=== PATIENT | female | born 1960 | race Hispanic/Latino ===

== ENCOUNTER 2018-08-22 19:30 | Emergency (ER) | payer MEDICARE, OTHER ==
[2018-08-22 19:31] VITALS: BMI 26.6
[2018-08-22 20:04] VITALS: BP 136/77; PULSE 84; RESP 18; TEMP 99.6; O2SAT 97
--- NOTE | 2018-08-22 20:14 | ED PDOC ---
Arrival/HPI - General Historian: Patient - History of Present Illness Narrative History of Present Illness (Text): 08/22/18 20:35 Patient is a 58 year old female with a past medical history of hypertension presenting to the emergency room after cutting her left thumb with a knife. Patient states she cut her thumb last night, greater than 20 hours ago. She washed the hand with hydrogen peroxide and has used neosporin to keep clean. Patient did not come yesterday because it was too late. She decided to come tonight just to get the wound checked. She has no other complaints at this time. Time/Duration: Other (20 hours) Symptom Onset: Sudden Symptom Course: Improving Quality: Other (none) <Jt Dudley - Last Filed: 08/22/18 21:33> <José Bradley - Last Filed: 08/23/18 02:42> - General Chief Complaint: Abnormal Skin Integrity Time Seen by Provider: 08/22/18 19:42 Past Medical History - Provider Review Nursing Documentation Reviewed: Yes - Infectious Disease Hx of Infectious Diseases: None - Reproductive Menopause: Yes - Cardiac Hx Cardiac Disorders: Yes Hx Hypertension: Yes - Pulmonary Hx Respiratory Disorders: No - Neurological Hx Neurological Disorder: No - HEENT Hx HEENT Disorder: No - Renal Hx Renal Disorder: No - Endocrine/Metabolic Hx Endocrine Disorders: No - Hematological/Oncological Hx Blood Disorders: No - Integumentary Hx Dermatological Disorder: No - Musculoskeletal/Rheumatological Hx Musculoskeletal Disorders: No - Gastrointestinal Hx Gastrointestinal Disorders: No - Genitourinary/Gynecological Hx Genitourinary Disorders: No - Psychiatric Hx Psychophysiologic Disorder: No Hx Substance Use: No - Surgical History Hx Cholecystectomy: Yes - Anesthesia Hx Anesthesia: No <Jt Dduley - Last Filed: 08/22/18 21:33> Family/Social History - Physician Review Nursing Documentation Reviewed: Yes Family/Social History: Unknown Family HX Smoking Status: Light Smoker < 10 Cigarettes Daily Hx Alcohol Use: No Hx Substance Use: No <Jt Dudley - Last Filed: 08/22/18 21:33> Allergies/Home Meds <Jt Dudley - Last Filed: 08/22/18 21:33> <José Bradley - Last Filed: 08/23/18 02:42> Allergies/Adverse Reactions: Allergies No Known Allergies Allergy (Verified 08/22/18 20:04) Review of Systems - Physician Review All systems were reviewed & negative as marked: Yes - Review of Systems Constitutional: Normal. absent: Fevers Musculoskeletal: Normal Skin: Laceration (left thumb) Neurological: Normal, Other (denies numbness or tingling.) <Jt Dudley - Last Filed: 08/22/18 21:33> Physical Exam Vital Signs Reviewed: Yes Vital Signs Temp Pulse Resp BP Pulse Ox 08/22/18 20:01 99.6 F 84 18 136/77 97 Temperature: Afebrile Blood Pressure: Normal Pulse: Regular Respiratory Rate: Normal Appearance: Positive for: Well-Appearing, Non-Toxic, Comfortable Pain Distress: None Mental Status: Positive for: Alert and Oriented X 3 - Systems Exam Upper Extremity: Present: NORMAL PULSES, Neurovascularly Intact, Capillary Refill < 2s, Other (1 cm x 1 cm x 1 cm U shaped laceration on the dorsal aspect of the left thumb. No erythema surrounding laceration. Covered with neosporin.). No: Normal Inspection, Swelling, Erythema Neurological: Present: GCS=15, CN II-XII Intact, Speech Normal, Motor Func Grossly Intact, Normal Sensory Function Skin: Present: Laceration (1 cm x 1 cm x 1 cm U shaped laceration on the dorsal aspect of the left thumb. No erythema surrounding laceration. Covered with neosporin.) Psychiatric: Present: Alert, Oriented x 3, Normal Insight, Normal Concentration <Jt Dudley - Last Filed: 08/22/18 21:33> Vital Signs Temp Pulse Resp BP Pulse Ox 08/22/18 20:01 99.6 F 84 18 136/77 97 <José Bradley - Last Filed: 08/23/18 02:42> Medical Decision Making ED Course and Treatment: 08/22/18 20:10 Patient is a 58 year old female presenting to the emergency room after cutting her finger with a knife over 20 hours ago. Patient states she does not want a Tetanus shot. Explained to patient that we can not close the wound on her left hand due to the cut happening 20 hours ago. Steri-strips placed. Patient given Keflex for 5 days and instructed to follow up with her primary care physician. <Jt Dudley - Last Filed: 08/22/18 21:33> - PA / CORPORATE STRATEGY ASSOCIATE / Resident Statement / has reviewed & agrees with the documentation as recorded. / has examined the patient and agrees with the treatment plan. <José Bradley - Last Filed: 08/23/18 02:42> Disposition/Present on Arrival - Present on Arrival Any Indicators Present on Arrival: No History of DVT/PE: No History of Uncontrolled Diabetes: No Urinary Catheter: No History of Decub. Ulcer: No History Surgical Site Infection Following: None - Disposition Have Diagnosis and Disposition been Completed?: Yes Disposition Time: 20:27 Patient Plan: Discharge <Jt Dudley - Last Filed: 08/22/18 21:33> - Present on Arrival Any Indicators Present on Arrival: No - Disposition Have Diagnosis and Disposition been Completed?: Yes <José Bradley - Last Filed: 08/23/18 02:42> - Disposition Diagnosis: Laceration of hand with delay in treatment Disposition: HOME/ ROUTINE Condition: GOOD Additional Instructions: STEPHANY EARL, thank you for letting us take care of you today. Your provider was José Bradley MD and you were treated for Finger Laceration. The emergency medical care you received today was directed at your acute symptoms. If you were prescribed any medication, please fill it and take as directed. It may take several days for your symptoms to resolve. Return to the Emergency Department if your symptoms worsen, do not improve, or if you have any other problems. Please contact your doctor or call one of the physicians/clinics you have been referred to that are listed on the Patient Visit Information form that is included in your discharge packet. Bring any paperwork you were given at discharge with you along with any medications you are taking to your follow up visit. Our treatment cannot replace ongoing medical care by a primary care yosvany javier outside of the emergency department. Thank you for allowing the [facility] team to be part of your care today. If you had an X-Ray or CT scan: A Radiologist will review the ED reading if any change in treatment is needed we will contact you. If you had a blood, urine, or wound culture: It will take several days for the results, if any change in treatment is needed we will contact you. If you had an STI test: It will take 48 hours for the results. Please call after 1 week if you have not heard back. Prescriptions: Cephalexin [cephalexin] 500 mg PO Q12H #10 cap Forms: [employer] (Danish)
== END 2018-08-22 20:56 | disposition home or self-care (01) ==
LOC: ED 19:30
DX: S61.012A Laceration without foreign body of left thumb without damage to nail, initial encounter (principal); W26.0XXA Contact with knife, initial encounter; Y92.89 Other specified places as the place of occurrence of the external cause